=== PATIENT | female | born 1985 | race Caucasian/White ===

== ENCOUNTER 2020-08-31 16:14 | Observation (INO) ==
[2020-08-31 17:03] LABS: Basophils % 0.2 %; Eosinophils % 0.2 %; Hemoglobin 12.8 g/dL (11.5-15.4); Immature Granulocytes % 0.3 % (0-4); Lymphocytes # 0.7 K/mcL (0.6-4.6); Lymphocytes % 7.9 %; Mean Corpuscular HGB Conc 33.7 g/dL (31.6-35.5); Mean Corpuscular Hemoglobin 30.5 pg (28.0-33.3); Mean Corpuscular Volume 90.5 fL (83.0-100.0); Mean Platelet Volume 9.2 fL (9.4-12.4); Monocytes # 0.3 K/mcL (0.0-1.3); Monocytes % 3.4 %; Neutrophils # 7.8 K/mcL (1.6-8.9); Platelet Count 196 K/mcL (140-400); Red Cell Distribution Width 12.5 % (11.5-14.5); White Blood Count 8.9 K/mcL (4.3-11.1)
[2020-08-31 17:24] LABS: BUN/Creatinine Ratio 15 (6-26); Blood Urea Nitrogen 10 mg/dL (6-20); Calcium 9.4 mg/dL (8.6-10.3); Carbon Dioxide 26 mEq/L (23-29); Chloride 103 mEq/L (98-107); Glucose 94 mg/dL (70-105); Osmolality,Calculated 281 (280-300); Potassium 3.7 mEq/L (3.5-5.1); Sodium 136 mEq/L (136-145); eGFR For African Americans > 60 (> 60); eGFR For Non-African Americans > 60 (> 60)
[2020-08-31] MEDS ORDERED: 0.9 % Sodium Chloride 1,000 ML IVC ONE (17:59)
[2020-08-31] MEDS ORDERED: Isovue-370 500 ML BOTTLE IVP ONE (18:24)
[2020-08-31 18:42] LABS: Bacteria,Urine Few per hpf (None-Few); Bilirubin,Urine Negative (Negative); Blood,Urine Moderate (Negative); Clarity,Urine Clear (Clear); Color,Urine Light-Yellow (Yellow); Glucose,Urine (UA) Normal (Normal); Hyaline Casts,Urine Few per lpf (None Seen); Ketones,Urine Negative (Negative); Leukocyte Esterase,Urine Negative (Negative); Mucus,Urine Few per lpf (None-Few); Nitrite,Urine Negative (Negative); Protein,Urine Negative (Neg-Trace); Specific Gravity,Urine 1.013 (1.010-1.025); Squamous Epithelial Cell,Urine Few per hpf (None-Few); Urobilinogen,Urine Normal (Normal); WBC,Urine 0-3 per hpf (0-3)
[2020-08-31 19:18] LABS: Albumin 4.4 g/dL (3.5-5.7); Albumin/Globulin Ratio 1.8 (1.1-2.2); Bilirubin,Direct 0.1 mg/dL (0.0-0.2); Bilirubin,Indirect 0.6 mg/dL (0.0-1.0); Bilirubin,Total 0.7 mg/dL (0.3-1.0); Globulin 2.4 g/dL (2.4-3.5); Total Protein 6.8 g/dL (6.4-8.9)
[2020-08-31] MEDS ORDERED: Ketorolac 15 MG/ML VIAL IVP ONE (20:02)
[2020-08-31] MEDS ORDERED: Piperacillin/Tazobactam 3.375 GM in 0.9 % Sodium Chloride Mini Bag 100 ML IVPB ONE (22:18)
[2020-09-01] MEDS ORDERED: Ondansetron 4 MG/2 ML VIAL IVP PRN (00:29)
[2020-09-01] MEDS ORDERED: Morphine Sulfate 2 MG/ML SYRINGE IVP PRN (00:31)
[2020-09-01] MEDS ORDERED: 0.9 % Sodium Chloride 1,000 ML IVC SCH (00:45)
[2020-09-01] MEDS ORDERED: Piperacillin/Tazobactam 3.375 GM in 0.9 % Sodium Chloride Mini Bag 100 ML IVPB SCH (08:00)
[2020-09-01] MEDS ORDERED: *HR* Midazolam HCl 2 MG/2 ML VIAL ONE (08:28)
[2020-09-01] MEDS ORDERED: *HR* FentaNYL (PF) 100 MCG/2 ML VIAL ONE (08:28)
[2020-09-01] MEDS ORDERED: Ondansetron 4 MG/2 ML VIAL ONE (08:28)
[2020-09-01] MEDS ORDERED: Lidocaine -MPF 4% 5 ML AMPUL ONE (08:28)
[2020-09-01] MEDS ORDERED: *HR* Rocuronium Bromide 50 MG/5 ML VIAL ONE (08:28)
[2020-09-01] MEDS ORDERED: *HR* Succinylcholine 200 MG/10 ML VIAL IVP ONE (08:28)
[2020-09-01] MEDS ORDERED: Lidocaine -MPF 2% 2 ML VIAL ONE (08:28)
[2020-09-01] MEDS ORDERED: *HR* Propofol 200 MG/20 ML VIAL IVP ONE (08:29)
[2020-09-01] MEDS ORDERED: cefOXitin 1,000 MG, 0.9 % Sodium Chloride 1,000 ML IR ONE (09:00)
[2020-09-01] MEDS ORDERED: Ketorolac 30 MG/ML VIAL ONE (09:22)
[2020-09-01] MEDS ORDERED: Sugammadex Sodium 200 MG/2 ML VIAL IV ONE (09:26)
[2020-09-01 10:48] VITALS: BP 112/61
[2020-09-01] MEDS ORDERED: Ketorolac 30 MG/ML VIAL IVP ONE (12:43)
== END 2020-09-01 16:11 | disposition home or self-care (01) ==
LOC: EMEROOARM 16:14 → 3BNU 16:14
PROVIDERS: ADMIT Surgery; ATTEND Surgery